=== PATIENT | male | born 1955 | race Caucasian/White ===

== ENCOUNTER 2021-05-09 09:55 | Outpatient (CLI) | payer BC, SELFPAY ==
--- NOTE | ~2021-05-09 | XR_ITS ---
XR knee RT 2V, XR knee LT 2V 05/09/2021 10:22 Indication: Knee pain. No recent trauma. Procedure: 2 views of each knee Comparison: No prior studies for comparison. Findings: No fracture, subluxation or dislocation. There is mild bilateral patellofemoral compartment osteoarthritis. No significant joint effusion. No soft tissue abnormalities. No foreign bodies. Impression: 1: Mild bilateral patellofemoral compartment osteoarthritis. Reviewed, dictated and finalized at location A. LINE MECHANIC Impression: 1: Mild bilateral patellofemoral compartment osteoarthritis. Impression: 1: Mild bilateral patellofemoral compartment osteoarthritis.
== END 2021-05-09 09:56 | disposition home or self-care (01) ==
PROVIDERS: PCP Family Medicine; Visit Provider Physician Assistant Medical
DX: M25.561 Pain in right knee (principal); M25.562 Pain in left knee
CPT/HCPCS: 73560

== ENCOUNTER 2022-09-21 00:43 | Day surgery (SDC) | payer BC, SELFPAY ==
[2022-09-07 15:05] VITALS: BMI 28.0
--- NOTE | 2022-09-20 13:36 | PM.HPGS ---
History of Present Illness History of Present Illness Consent: Risks, benefits, and alternatives have been discussed and questions answered. Patient agrees to proceed with procedure. Chief complaint: hx colon polyps, neoplasm screening Narrative: Joe Oneill is a 67 year old male Who is here for colon cancer screening. He has a family history of colon cancer in an uncle. He himself had 2 adenomatous polyps removed about 6 years ago. Review of Systems Review of Systems: All systems reviewed & are unremarkable except as noted in HPI and below PMFSH Past Medical History Medical History BMI 29.0-29.9,adult BMI greater than 30 Family History Family History Sibling Hypertension Family history of coronary artery disease Acute myocardial infarction Grandparent Family history of coronary artery disease Mother Family history of coronary artery disease Heart disease Father Aneurysm Emphysema of lung Social History Social History Smoking status: Never smoker Second hand tobacco smoke exposure: Yes Alcohol intake: current Alcohol use details: occasional Substance use: never Substance use type: does not use Lack of Transportation: No Lack of Food: Never True Current Housing: I Have Housing Concerned About Future Housing: No Difficulty Paying Gas/Electric Bills: No Difficulty Paying for Meds: No Currently Unemployed: No Education: High School Diploma/GED Difficulty w/ Childcare or Family Care: No Living arrangements: with family Occupation/Education: occupation 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 Spiritual care concerns: No Meds Home Medications and Allergies Home Medications Medication Instructions Recorded Confirmed Type irbesartan 150 mg tablet See Rx Instructions .Route 05/31/22 09/07/22 Rx .COMPLEX #90 tabs aspirin 81 mg tablet,delayed 81 mg PO .QD 07/18/22 09/07/22 History release (Adult Low Dose Aspirin) ezetimibe 10 mg tablet See Rx Instructions .Route 07/18/22 09/07/22 Rx .COMPLEX #90 tabs meloxicam 15 mg tablet 15 mg PO DAILY #90 tabs 07/18/22 09/07/22 Rx multivitamin 1 tablet PO .QD 07/18/22 09/07/22 History omega 2-whi-tth-fish oil 60 mg-90 1 cap PO .QD 07/18/22 09/07/22 History mg-500 mg capsule (Fish Oil) nutritional supplement-fiber oral 1 ea PO DAILY 09/07/22 09/07/22 History liquid Allergies Allergy/AdvReac Type Severity Reaction Status Date / Time atorvastatin Allergy Unknown muscle Verified 09/21/22 06:54 aches rosuvastatin Allergy Unknown muscles Verified 09/21/22 06:54 aches Exam Const: General: alert Orientation/consciousness: patient oriented x3 Resp: Auscultation: clear to auscultation bilaterally Cardio: Rhythm: regular rhythm GI: GI Palp: Yes Soft to palpation and No Tenderness to palpation present (GI) Neuro: General: patient oriented x3 Assessment and Plan Assessment and plan (1) Screening for colon cancer: Code(s): Z12.11 - Encounter for screening for malignant neoplasm of colon Status: Acute Assessment and Plan: Colonoscopy with possible biopsy or polypectomy or cautery or injection of substances.
[2022-09-21 06:56] VITALS: BP 132/80; PULSE 65; RESP 18; TEMP 36.1; O2SAT 98
[2022-09-21] MEDS: LACTATED RINGERS 1,000 ML 150 ML IV CONT (07:04)
--- NOTE | 2022-09-21 07:16 | WPDANESEPPF ---
Anes - Initial Pre Proc Eval Procedure: Operation Date: 09/21/22 08:00 Proposed Procedures p Screening Colonoscopy - Nash Mir MD Date/Time: 09/21/22 07:16 Surgeon: Nash Mir MD Pre Op Diagnosis: hx colon polyps, neoplasm screening Patient Data Age: 67 Gender: M Height: 1.83 m Weight: 94 kg Last Vital Signs Temp 97 F L 09/21/22 06:56 Pulse 65 09/21/22 06:56 Resp 18 09/21/22 06:56 BP 132/80 09/21/22 06:56 Pulse Ox 98 09/21/22 06:56 O2 Del Method Room Air 09/21/22 06:56 Allergies Allergy/AdvReac Type Severity Reaction Status Date / Time atorvastatin Allergy Unknown muscle Verified 09/21/22 06:54 aches rosuvastatin Allergy Unknown muscles Verified 09/21/22 06:54 aches Home Medications Medication Instructions Recorded Confirmed Type irbesartan 150 mg tablet See Rx Instructions .Route 05/31/22 09/07/22 Rx .COMPLEX #90 tabs aspirin 81 mg tablet,delayed 81 mg PO .QD 07/18/22 09/07/22 History release (Adult Low Dose Aspirin) ezetimibe 10 mg tablet See Rx Instructions .Route 07/18/22 09/07/22 Rx .COMPLEX #90 tabs meloxicam 15 mg tablet 15 mg PO DAILY #90 tabs 07/18/22 09/07/22 Rx multivitamin 1 tablet PO .QD 07/18/22 09/07/22 History omega 0-vrc-loe-fish oil 60 mg-90 1 cap PO .QD 07/18/22 09/07/22 History mg-500 mg capsule (Fish Oil) nutritional supplement-fiber oral 1 ea PO DAILY 09/07/22 09/07/22 History liquid Patient hx anesthesia problems: none Family hx anesthesia problems: none Results Review: All pre-operative results and documents have been reviewed as part of the pre-operative evaluation. [facility] Past Medical History Medical History BMI 29.0-29.9,adult BMI greater than 30 Family History Family History Sibling Hypertension Family history of coronary artery disease Acute myocardial infarction Grandparent Family history of coronary artery disease Mother Family history of coronary artery disease Heart disease Father Aneurysm Emphysema of lung Social History Social History Smoking status: Never smoker Second hand tobacco smoke exposure: Yes Alcohol intake: current Alcohol use details: occasional Substance use: never Substance use type: does not use Lack of Transportation: No Lack of Food: Never True Current Housing: I Have Housing Concerned About Future Housing: No Difficulty Paying Gas/Electric Bills: No Difficulty Paying for Meds: No Currently Unemployed: No Education: High School Diploma/GED Difficulty w/ Childcare or Family Care: No Living arrangements: with family Occupation/Education: occupation 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 Informed Consent: The patient's anesthetic plan and its attendant risks and benefits were discussed with the patient/family/POA. Questions were solicited and answers provided to the satisfaction of the patient/family/POA.
[2022-09-21] MEDS: SIMETHICONE ORAL SUSPENSION 20 MG/0.3 ML 30 ML BOTTLE 0.6 ML IRRIGATION (08:00)
[2022-09-21 08:12] VITALS: BP 111/59; PULSE 75; RESP 22; O2SAT 94
[2022-09-21 08:22] VITALS: BP 111/64; PULSE 66; RESP 20; O2SAT 94
[2022-09-21 08:32] VITALS: BP 111/69; PULSE 64; RESP 16; O2SAT 98
== END 2022-09-21 08:40 | disposition home or self-care (01) ==
PROVIDERS: PCP Family Medicine; Visit Provider Internal Medicine Gastroenterology
PROC: 0DJD8ZZ Inspection of Lower Intestinal Tract, Via Natural or Artificial Opening Endoscopic (ICD-10-PCS; CPT 45378; principal; 2022-09-21 08:00)
DX: Z12.11 Encounter for screening for malignant neoplasm of colon (principal); K64.8 Other hemorrhoids; K57.30 Diverticulosis of large intestine without perforation or abscess without bleeding; D12.4 Benign neoplasm of descending colon; Z79.82 Long term (current) use of aspirin; E66.9 Obesity, unspecified; Z68.28 Body mass index [BMI] 28.0-28.9, adult
CPT/HCPCS: 45385; 88305; J2704; J7120

== ENCOUNTER 2023-01-29 08:02 | Outpatient (CLI) | payer BC, SELFPAY ==
--- NOTE | 2023-01-31 15:57 | WPDHOLTEREM ---
Holter/Event Monitor Holter/Event Monitor Date of procedure: 01/29/23 Holter/Event Procedure: 24 Hr Holter Monitor Indications: Cardiac arrhythmia Conclusion: 1. 24 hour holter monitor on 01/29/23. 2. Underlying rhythm is sinus rhythm. HR range 53-124 bpm; average HR 75 bpm. 3. There are 70 premature supraventricular complexes and 4 supraventricular couplets. No supraventricular tachycardia. 4. There are 1,1,70 premature ventricular complexes, 15 ventricular couplets, 12 ventricular bigeminy and 12 ventricular trigeminy. No ventricular tachycardia. 5. No sinoatrial or atrioventricular blocks. No significant pauses greater than 2 seconds. 6. No symptoms available for correlation.
== END 2023-01-29 08:03 | disposition home or self-care (01) ==
PROVIDERS: PCP Family Medicine; Visit Provider Physician Assistant Medical
DX: I49.9 Cardiac arrhythmia, unspecified (principal)
CPT/HCPCS: 93225; 93226

== ENCOUNTER 2023-06-07 10:19 | Outpatient (CLI) | payer BC, SELFPAY ==
--- NOTE | ~2023-06-07 | XR_ITS ---
XR knee LT 3V 06/07/2023 10:47 Indication: Left knee pain Procedure: 4 views left knee Comparison: 05/09/2021 Findings: There is moderate tricompartment osteoarthritis. Small joint effusion. No fracture or traum atic malalignment Impression: 1: Moderate osteoarthritis of the left knee. 2: Small joint effusion. Reviewed, dictated and finalized at location A. EXPERT Impression: 1: Moderate osteoarthritis of the left knee. 2: Small joint effusion.
== END 2023-06-07 10:20 | disposition home or self-care (01) ==
PROVIDERS: PCP Family Medicine; Visit Provider Nurse Practitioner Adult Health
DX: M17.12 Unilateral primary osteoarthritis, left knee (principal); M25.462 Effusion, left knee
CPT/HCPCS: 73562

== ENCOUNTER 2023-07-24 07:49 | Outpatient (CLI) | payer BC, SELFPAY ==
--- NOTE | 2023-07-24 08:45 | ECG_ITS ---
Measurements Intervals [place] Rate: 68 P: 59 NC: 192 QRS: -7 QRSD: 80 T: 43 QT: 362 QTc: 386 Interpretive Statements SINUS RHYTHM WITH OCCASIONAL VENTRICULAR PREMATURE COMPLEXES ANTEROSEPTAL MYOCARDIAL INFARCTION [40+ ms Q WAVE IN V1-V4], OF INDETERMINATE AGE ABNORMAL ECG NO PREVIOUS ECG AVAILABLE FOR COMPARISON Electronically Signed On 07-24-2023 11:52:45 TECHNICIAN by Mario Lutz M.D.
[2023-07-24 09:01] LABS: Basophils Absolute Auto 0.1 K/mm3 (0.0-0.1); Basophils Percent Auto 0.7 % (0.2-1.2); Eosinophils Absolute Auto 0.3 K/mm3 (0-0.3); Eosinophils Percent Auto 4.6 % (0-4.4); Hematocrit 46.3 % (42.0-52.0); Immature Granulocyte Absolute 0.03 K/mm3 (0.00-0.031); Immature Granulocyte Percent A 0.4 % (0-0.5); Lymphocytes Absolute Auto 2.23 K/mm3 (0.9-3.2); Lymphocytes Percent Auto 32.7 % (18.3-44.2); Mean Corpuscular HGB Conc 34.6 g/dl (32-36); Mean Corpuscular Hemoglobin 31.8 pg (26-34); Mean Platelet Volume 9.3 fl (7.4-10.4); Monocytes Absolute Auto 0.8 K/mm3 (0.1-0.6); Monocytes Percent Auto 11.5 % (2.6-8.5); Neutrophils Absolute Auto 3.4 K/mm3 (1.3-6.7); Neutrophils Percent Auto 50.1 % (45.5-73.1); Platelet Count Result 234 k/mm3 (150-375); Red Blood Count 5.03 M/mm3 (4.6-6.20); Red Cell Distribution Width 12.5 % (11.5-14.5); White Blood Count 6.8 K/mm3 (4.5-10.0)
== END 2023-07-24 07:50 | disposition home or self-care (01) ==
LOC: ANHSURGERY 07:52
PROVIDERS: PCP Family Medicine; Visit Provider Orthopaedic Surgery
DX: Z01.818 Encounter for other preprocedural examination (principal); M17.12 Unilateral primary osteoarthritis, left knee; I10 Essential (primary) hypertension; R93.1 Abnormal findings on diagnostic imaging of heart and coronary circulation; R94.31 Abnormal electrocardiogram [ECG] [EKG]
CPT/HCPCS: 36415; 85025; 93005

== ENCOUNTER 2023-08-13 00:38 | Day surgery (SDC) | payer BC, SELFPAY ==
[2023-07-24 07:49] VITALS: BP 141/73; PULSE 73; RESP 16; TEMP 36.8; O2SAT 95; BMI 30.5
--- NOTE | 2023-07-24 08:16 | PC.NURSE ---
Report to the Outpatient Waiting Room, entrance under the green pavilion located off [facility], at time ___11:00AM____ on date __08/13/23 . Planned Procedure Time: ___1:00PM . Time changes happen often and if your time is changed the preop area will call you the afternoon before. - You and your visitor will be asked to self-screen and do not enter if you have any COVID symptoms. - A mask is optional within the hospital at this time. Patients may have clear liquids (water, carbonated beverages, clear teas, apple juice) until 3 hours prior to surgery with a maximum of 20 ounces. - No food from midnight until time of surgery - Infants may have breast milk until 4 hours before surgery, formula 6 hours prior to surgery. Take the following medications with a SIP of water the morning of surgery: ___NONE DO NOT STOP ANY OF YOUR OTHER PRESCRIPTION MEDICATIONS PRIOR TO SURGERY ?EXCEPT THE FOLLOWING Medications to discontinue per physician _HOLD MELOXICAM AND ALL VITAMINS/SUPPLEMENTS 7 DAYS PRE-OP PER SUGGS Date to take last dose____08/05/23 Please no make-up, nail malian, hairspray, perfume, deodorant, or body powder the day of surgery. No jewelry (including any body piercings) or valuables the day of surgery, leave them at home. Please take a shower or bath the night before, or the morning of, surgery with an antibacterial soap. Wear comfortable, loose fitting clothing. - Jewelry must be removed prior to entering the operating room. Rings and piercings that are not removed may be cut off. - The hospital will not accept responsibility for valuables. - Please leave all valuables, including medications, at home the day of surgery. If you are going home after surgery, a licensed patrol driver must drive you home. - NO public transportation without another adult if you receive anesthesia. - We recommend that an adult stay with you for 24 hours following discharge. - We also recommend that you do not drive, make important decision, drink alcoholic beverages, or take any drugs that were not prescribed by your health care provider for at least 24 hours after your discharge time. Follow any additional instructions given to you from your surgeon. If you or anyone in your household have experienced Covid symptoms in the past week, please notify your surgeon or the nurse liaison at the phone number below for possible testing. Telephone instructions given to ____PATIENT and asked if any additional questions and then verbalized understanding. Patient advised to call surgeon office or pre surgery nurse liaison [phone] if any additional questions.
--- NOTE | 2023-08-12 13:04 | WPDANESEPPF ---
Anes - Initial Pre Proc Eval Procedure: Operation Date: 08/13/23 13:00 Proposed Procedures p Left Partial Knee Arthroplasty - Reed Lopez MD Date/Time: 08/12/23 13:04 Surgeon: Reed Lopez MD Pre Op Diagnosis: primary OA left knee Patient Data Age: 67 Gender: M Height: 1.8 m Weight: 99.3 kg Last Vital Signs Temp 36.8 C 07/24/23 07:49 Pulse 73 07/24/23 07:49 Resp 16 07/24/23 07:49 BP 141/73 H 07/24/23 07:49 Pulse Ox 95 07/24/23 07:49 O2 Del Method Room Air 07/24/23 07:49 Allergies Allergy/AdvReac Type Severity Reaction Status Date / Time atorvastatin AdvReac Unknown muscle Verified 07/24/23 07:57 aches rosuvastatin AdvReac Unknown muscles Verified 07/24/23 07:57 aches Home Medications Medication Instructions Recorded Confirmed Type meloxicam 15 mg tablet 15 mg PO DAILY #90 tabs 07/18/22 08/08/23 Rx multivitamin 1 tablet PO .QD 07/18/22 08/08/23 History omega 0-vmo-yfc-fish oil 60 mg-90 1 cap PO .QD 07/18/22 08/08/23 History mg-500 mg capsule (Fish Oil) acetaminophen 650 mg 1,300 mg PO Q8H PRN Pain 07/24/23 08/08/23 History tablet,extended release cholecalciferol (vitamin D3) 25 25 mcg PO DAILY 07/24/23 08/08/23 History mcg (1,000 unit) capsule ezetimibe 10 mg tablet 10 mg PO DAILY 07/24/23 08/08/23 History irbesartan 150 mg tablet 150 mg PO QAM 07/24/23 08/08/23 History gyjdjith-ottspu-lalxu extract 5 4 cap PO QAM 07/24/23 08/08/23 History mg-6 mg-150 mg capsule (Fruit and Vegetable Daily) aspirin 81 mg tablet,delayed 81 mg PO BID 14 days #28 tabs 08/13/23 Rx release meloxicam 15 mg tablet 15 mg PO DAILY #30 tabs 08/13/23 Rx oxycodone-acetaminophen 5 mg-325 1 - 2 tablet PO Q4-6H PRN pain #30 03/05/24 Rx mg tablet tabs Patient hx anesthesia problems: none Family hx anesthesia problems: none Results Review: All pre-operative results and documents have been reviewed as part of the pre-operative evaluation. [facility] Past Medical History Medical History (Updated 08/13/23 @ 07:17 by RAHEL Velazquez) Benign hypertension BMI 28.0-28.9,adult BMI 29.0-29.9,adult BMI greater than 30 Irregular heart beats Mixed hyperlipidemia TISH on CPAP Pre-diabetes Family History Family History Sibling Hypertension Family history of coronary artery disease Acute myocardial infarction Grandparent Family history of coronary artery disease Mother Family history of coronary artery disease Heart disease Father Aneurysm Emphysema of lung Social History Social History (Updated 07/15/23 @ 08:15 by Annette Huber MA) Smoking status: Never smoker Second hand tobacco smoke exposure: Yes Alcohol intake: current Drinks per week: 7 Alcohol use details: occasional Substance use: never Substance use type: does not use Do You Feel Safe in your Home?: Yes Lack of Transportation: No Lack of Food: Never True Current Housing: I Have Housing Concerned About Future Housing: No Difficulty Paying Gas/Electric Bills: No Difficulty Paying for Meds: No Currently Unemployed: No Education: High School Diploma/GED Difficulty w/ Childcare or Family Care: No Living arrangements: with family Additional living arrangements comments: Occupation/Education: occupation 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
[2023-08-13] VITALS (7 sets, daily range): BP systolic 112–136; BP diastolic 71–85; PULSE 66–86; RESP 14–19; TEMP 36.1–36.6; O2SAT 95–100
--- NOTE | ~2023-08-13 | XR_ITS ---
EXAM: [id number] DATE: 08/13/2023 14:49 HISTORY: LT PARTIAL KNEE POST OP . COMPARISON: 06/07/2023. FINDINGS: Status post left knee hemiarthroplasty. Hardware in good position. Subcutaneous gas and fl uid over the joint space. No unexpected radiopaque foreign body. IMPRESSION: Expected postsurgical changes, with no radiographic evidence of procedure or hardware rel ated complication. Reviewed, dictated and finalized at location K. E TRAINER IMPRESSION: Expected postsurgical changes, with no radiographic evidence of pro cedure or hardware related complication.
[2023-08-13] MEDS: LACTATED RINGERS 1,000 ML 30 ML IV CONT ×2 (12:15→14:37)
[2023-08-13] MEDS: TRANEXAMIC ACID 1,000MG/ISO100 1,000 MG/100 ML BAG 200 MG IVPB (12:15)
[2023-08-13] MEDS: ACETAMINOPHEN 500 MG TABLET 1000 MG PO (12:15)
--- NOTE | 2023-08-13 12:41 | WPDHPUPDATE1 ---
History and Physical Update Update Date/Time: 08/13/23 12:41 History and Physical has been reviewed, including an updated exam of the patient. There are NO changes in the patient's condition. Risks, benefits, and alternatives have been discussed and questions answered. Patient agrees to proceed with procedure.
--- NOTE | 2023-08-13 12:48 | WPDANESPNB ---
Anes - Peripheral Nerve Block Date/Time: 08/13/23 12:48 I have discussed with the patient/family/POA the placement of a peripheral nerve block for post-operative pain management, including associated risks, benefits, complications, and side effects. Alternative methods of post-operative analgesia were detailed. Questions were solicited and answers provided to the satisfaction of the patient/family/POA. Time-Out: A pre-procedural Time-Out was completed immediately before starting the procedure and confirmed: Patient Identification, Site, Procedure, Patient Position and the Availability of Requisite Equipment. Clinical Indications: Acute post-operative pain management requested by the operative surgeon. Nerve Block Insertion Note Anes-nerve block: adductor canal left Patient position: supine Skin prep: chlorhexidine Needle: 22 gauge, stimulating, insulated echogenic needle. Needle length: 80 mm Technique: ultrasound Injectate: bupivacaine 0.5% with epi 5 mcg/ml (30cc - no epi) Observations: tolerated well Complications: none Procedure start time:: 1242 Procedure end time:: 124
[2023-08-13] MEDS: ceFAZolin 2 GM/D5W 50 ML 2 GM/50 ML BAG IVPB (12:56)
[2023-08-13] MEDS: SODIUM CHLORIDE 0.9% IV 37.7 ML, MORPHINE SULFATE INJ (*CRX) 2 MG, ROPivacaine HCL 1% 2... INFILTRATE (13:17)
--- NOTE | 2023-08-13 14:43 | P.OP_ITS ---
Procedure Note - Detailed Date of Procedure 08/13/23 Pre-op Diagnosis primary OA left knee Post-op Diagnosis Same Procedure Performed Partial knee arthroplasty, left knee, medial compartment. Surgeon Reed Lopez MD [employer] Radha Washington PA-C Anesthesia General Findings Severe medial disease. Excellent bone quality. ACL intact. Description of Procedure The patient was given a general anesthetic. Preoperative antibiotics were given. The knee was prepped and draped in the usual sterile fashion. A longitudinal incision was created along the medial aspect of the patellar tendon. A minimally invasive optimized mid vastus approach was completed. No medial release was taken. The external alignment guide was used to cut the tibia with anatomic posterior slope. A 4 millimeter resection was taken. The spacer block technique was utilized to measure flexion and extension gaps after the osteophytes were removed. The difference was used to calculate the distal resection. The distal cutting block was utilized to cut the distal femur. The AP and chamfer block was utilized for this last cuts. The femur and tibia were sized. Range of motion and gap balancing was assessed. This was tested with the 1.5 millimeter spacer. The bony surfaces were cleaned with lavaged. Lug holes were drilled. The real components were cemented into position. Excess cement was carefully removed. The tourniquet was released. Meticulous hemostasis was maintained. The wound was closed with interrupted 1 Vicryl suture followed by a running 0 Quill suture and 2-0 Quill suture. Steri-Strips are placed in the skin the patient was extubated and brought to recovery room in stable condition. There were no complications. Physician claims assistant, Radha Washington PA-C, required for surgery; including patient positioning, draping, tissue retraction, maintaining instrument position, cement removal, wound closure, and dressing placement. Implants [employer] system femur size 4, tibia size 4, 8 mm polyethylene insert . One batch Simplex antibiotic cement. Estimated Blood Loss 50 Drains No Pathology None sent Complications No immediate complications Condition Stable Disposition PACU [facility] Billing Surgery - Charge Forward: Surgery Billing
[2023-08-13] MEDS: fentaNYL CITRATE INJ (*CRX) 100 MCG/2 ML VIAL 25 MCG IV PUSH ×4 (15:10→15:21)
== END 2023-08-13 16:25 | disposition home or self-care (01) ==
PROVIDERS: PCP Family Medicine; Visit Provider Orthopaedic Surgery
PROC: (CPT 27446; principal; 2023-08-13 13:00)
DX: M17.12 Unilateral primary osteoarthritis, left knee (principal); G89.18 Other acute postprocedural pain; I10 Essential (primary) hypertension; E78.2 Mixed hyperlipidemia; G47.33 Obstructive sleep apnea (adult) (pediatric); R73.03 Prediabetes; Z79.82 Long term (current) use of aspirin; E66.9 Obesity, unspecified; Z68.29 Body mass index [BMI] 29.0-29.9, adult
CPT/HCPCS: 27447; 64447; 73560; 97110; 97161; 97165; 97530; A9270; C1713; C1776; J0171; J0690; J1100; J1885; J2250; J2270; J2405; J2704; J2795; J3010; J7120